=== PATIENT | male | born 2000 | race American Indian/Alaskan Native ===

== ENCOUNTER 2019-05-14 13:32 | Emergency (ER) | payer SELFPAY ==
--- NOTE | 2019-05-14 13:50 | Event Note ---
ED Screening Note Date of service: 05/14/19 Time: 13:47 ED Screening Note: This is a 18 y.o. M. that presents to the ER partially arousal and poor historian. Reports dizzy, syncopal episode, and nose bleed. This initial assessment/diagnostic orders/clinical plan/treatment(s) is/are subject to change based on patients health status, clinical progression and re- assessment by fellow clinical providers in the ED. Further treatment and workup at subsequent clinical providers discretion. Patient/guardian urged not to elope from the ED as their condition may be serious if not clinically assessed and managed. Initial orders include: Labs and CT of head
== END 2019-05-14 15:00 | disposition left against medical advice (07) ==
LOC: ED 13:32
DX: R42 Dizziness and giddiness (principal); Z53.21 Procedure and treatment not carried out due to patient leaving prior to being seen by health care provider

== ENCOUNTER 2021-10-08 08:37 | Emergency (ER) | payer SELFPAY ==
[2021-10-08 08:49] VITALS: BP 129/51
[2021-10-08] MEDS ORDERED: DICYCLOMINE 20 MG TAB PO ONE (12:06)
[2021-10-08] MEDS ORDERED: ONDANSETRON 4 MG ODT TAB PO ONE (12:06)
--- NOTE | 2021-10-08 12:09 | Emergency Department Report ---
ED N/V/D HPI - General Chief complaint: Nausea/Vomiting/Diarrhea Stated complaint: VOMITING Time Seen by Provider: 10/08/21 12:02 Source: patient Mode of arrival: Ambulatory Limitations: No Limitations - History of Present Illness Initial comments: 21-year-old black male with no past medical history presents to the emergency department for evaluation of nausea, vomiting, and intermittent abdominal cramping. He states that he has had 2 episodes of vomiting in the last 24 hours but his nausea is slightly improved at this time. He denies fever, diarrhea, dysuria, and penile discharge. He states that he has had some interaction with sick contacts with the same type symptoms. MD complaint: nausea, vomiting, abdominal pain -: days(s) (1) Associated Abdominal Pain: Yes Location: epigastric Radiation: none Severity: moderate Pain Scale: 6 Quality: cramping Context: sick contacts Associated Symptoms: nausea/vomiting. denies: myalgias, chest pain, cough, diaphoresis, fever/chills, headaches, loss of appetite, malaise, rash, dysuria, shortness of breath, syncope, weakness - Related Data Previous Rx's Medication Instructions Recorded Last Taken Type Dicyclomine [Bentyl] 20 mg PO QID PRN #30 tablet 10/08/21 Unknown Rx Ondansetron [Zofran Odt] 4 mg PO Q8HR PRN #12 tab.rapdis 10/08/21 Unknown Rx Allergies Allergy/AdvReac Type Severity Reaction Status Date / Time No Known Allergies Allergy Verified 10/08/21 08:47 ED Review of Systems ROS: Stated complaint: VOMITING Other details as noted in HPI Comment: All other systems reviewed and negative Constitutional: denies: chills, fever, weakness Eyes: denies: vision change ENT: denies: ear pain, throat pain, congestion Respiratory: denies: cough, orthopnea, shortness of breath, SOB with exertion, SOB at rest, stridor, wheezing Cardiovascular: denies: chest pain, palpitations, dyspnea on exertion, orthopnea, edema, syncope, paroxysmal nocturnal dyspnea Gastrointestinal: abdominal pain, nausea, vomiting. denies: diarrhea, hematemesis, melena, hematochezia Genitourinary: denies: urgency, dysuria, frequency, hematuria, discharge, testicular pain Musculoskeletal: denies: back pain, joint swelling, arthralgia, myalgia Skin: denies: rash, lesions, change in color, change in hair/nails, pruritus Neurological: denies: headache, weakness, numbness Hematological/Lymphatic: denies: easy bleeding, easy bruising, swollen glands ED Past Medical Hx - Past Medical History Previous Medical History?: No Additional medical history: UNKNOWN - Surgical History Past Surgical History?: No - Medications Home Medications: Home Medications Medication Instructions Recorded Confirmed Last Taken Type Dicyclomine [Bentyl] 20 mg PO QID PRN #30 tablet 10/08/21 Unknown Rx Ondansetron [Zofran Odt] 4 mg PO Q8HR PRN #12 tab.rapdis 10/08/21 Unknown Rx ED Physical Exam - General Limitations: No Limitations General appearance: alert, in no apparent distress - Head Head exam: Present: atraumatic, normocephalic - Eye Eye exam: Present: normal appearance. Absent: conjunctival injection, periorbital swelling, periorbital tenderness - Neck Neck exam: Present: normal inspection. Absent: tenderness, meningismus, full ROM, lymphadenopathy - Respiratory Respiratory exam: Present: normal lung sounds bilaterally. Absent: respiratory distress, wheezes, rales, rhonchi, stridor, chest wall tenderness - Cardiovascular Cardiovascular Exam: Present: regular rate, normal heart sounds - GI/Abdominal GI/Abdominal exam: Present: soft, normal bowel sounds. Absent: distended, tenderness, guarding, rebound, rigid - Extremities Exam Extremities exam: Present: normal inspection, normal capillary refill. Absent: pedal edema, joint swelling, calf tenderness - Back Exam Back exam: Present: normal inspection. Absent: CVA tenderness (R), CVA tenderness (L), vertebral tenderness - Neurological Exam Neurological exam: Present: alert, oriented X3, normal gait - Psychiatric Psychiatric exam: Present: normal affect, normal mood - Skin Skin exam: Present: warm, dry, intact, normal color ED Course Vital Signs 10/08/21 10/08/21 08:47 12:53 Temperature 98 F 98 F Pulse Rate 75 75 Respiratory 16 18 Rate Blood Pressure 129/51 129/51 [Left] O2 Sat by Pulse 98 98 Oximetry ED Medical Decision Making - Medical Decision Making 21-year-old black male with no past medical history presents to the emergency department for evaluation of nausea, vomiting, and intermittent abdominal cramping. He states that he has had 2 episodes of vomiting in the last 24 hours but his nausea is slightly improved at this time. He denies fever, diarrhea, dysuria, and penile discharge. He states that he has had some interaction with sick contacts with the same type symptoms. . No gross abnormalities noted on exam, and urine negative for urinary tract infection. Symptoms and exam most consistent with gastroenteritis. Patient will be treated with Zofran and Bentyl both in the emergency department and at home on discharge. He is advised to take medications as prescribed and follow- up with primary care provider if no improvement or worsening symptoms. He verbalizes understanding of and agreement with plan of care. Laboratory Last Values Urine Color Mikki (Yellow) 10/08/21 Unknown Urine Turbidity Clear (Clear) 10/08/21 Unknown Urine pH 5.0 (5.0-7.0) 10/08/21 Unknown Ur Specific [place] 1.032 (1.003-1.030) H 10/08/21 Unknown Urine Protein 100 mg/dl mg/dL (Negative) 10/08/21 Unknown Urine Glucose (UA) Neg mg/dL (Negative) 10/08/21 Unknown Urine Ketones Tr mg/dL (Negative) 10/08/21 Unknown Urine Blood Neg (Negative) 10/08/21 Unknown Urine Nitrite Neg (Negative) 10/08/21 Unknown Urine Bilirubin Neg (Negative) 10/08/21 Unknown Urine Urobilinogen 2.0 mg/dL (<2.0) 10/08/21 Unknown Ur Leukocyte Esterase Neg (Negative) 10/08/21 Unknown Urine WBC (Auto) 1.0 /HPF (0.0-6.0) 10/08/21 Unknown Urine RBC (Auto) 3.0 /HPF (0.0-6.0) 10/08/21 Unknown Urine Mucus 3+ /HPF 10/08/21 Unknown Critical care attestation.: If time is entered above; I have spent that time in minutes in the direct care of this critically ill patient, excluding procedure time. ED Disposition Clinical Impression: Gastroenteritis Disposition: 01 HOME / SELF CARE / HOMELESS Is pt being admited?: No Does the pt Need Aspirin: No Condition: Stable Instructions: Viral Gastroenteritis, Adult, [id number] Additional Instructions: Take medications as prescribed. Drink plenty of noncaffeinated fluids. Follow- up with primary care provider if worsening symptoms. Return to the emergency department as needed. Prescriptions: Dicyclomine [Bentyl] 20 mg PO QID PRN #30 tablet PRN Reason: Pain, Moderate (4-6) Ondansetron [Zofran Odt] 4 mg PO Q8HR PRN #12 tab.rapdis PRN Reason: Nausea And Vomiting Referrals: ZACK SILVA MD [Staff Physician] - 3-5 Days Forms: Work/School Release Form(ED) Time of Disposition: 12:09
[2021-10-08 12:53] LABS: Bilirubin,Urine NEG (Negative); Blood,Urine NEG (Negative); Color,Urine Amber (Yellow); Mucus,Urine 3+ /HPF
== END 2021-10-08 12:53 | disposition home or self-care (01) ==
LOC: ED 08:37
DX: K52.9 Noninfective gastroenteritis and colitis, unspecified (principal); Z79.899 Other long term (current) drug therapy
CPT/HCPCS: 81001; 99283; J3490; Q0162